=== PATIENT | male | born 1945 | race Caucasian/White ===

== ENCOUNTER → 2017-06-04 | Outpatient (CLI) | payer MEDICARE, BC ==
[~2017-06-04] MED LIST: CIPRO 500MG TA500 MG PO; CORTEF 20MG TAB20 MG PO; FLAGYL500 MG PO; LIPITOR 40MG TA40 MG PO; NORCO 325 MG-51 TAB PO; PRIL40 PO; SYNTHROID0.112 MG/T PO; ULTRAM 50MG TAB50 MG PO
== END ==
LOC: COL.RAD 09:44
DX: K57.20 Diverticulitis of large intestine with perforation and abscess without bleeding (principal); N40.0 Benign prostatic hyperplasia without lower urinary tract symptoms; N13.30 Unspecified hydronephrosis; Z90.49 Acquired absence of other specified parts of digestive tract
CPT/HCPCS: Q9967